=== PATIENT | female | born 1985 | race American Indian/Alaskan Native ===

== ENCOUNTER 2018-07-21 16:54 | Emergency (ER) | payer OTHER ==
[2018-07-21] MEDS ORDERED: NACL 0.9% 500 ML IR ONE (17:00)
[2018-07-21] MEDS ORDERED: XYLOCAINE 1%/ EPI 1:100,000 INFILTRATI ONE (17:01)
[2018-07-21] MEDS ORDERED: NACL 0.9% 1000 ML 1,000 ML IV ONE (17:36)
[2018-07-21] MEDS ORDERED: BOOSTRIX IM ONE ×2 (17:36→19:58)
[2018-07-21] MEDS ORDERED: ZOFRAN IV ONE (17:36)
[2018-07-21] MEDS ORDERED: KETAMINE HCL IV ONE ×2 (17:36)
[2018-07-21 17:46] LABS: Hematocrit 37.6 % (30.3-42.9); Hemoglobin 12.8 gm/dl (10.1-14.3); Mean Corpuscular HGB Conc 34 % (30-34); Mean Corpuscular Volume 87 fl (79-97); Platelet Count 197 K/mm3 (140-440); Red Blood Count 4.32 M/mm3 (3.65-5.03); Red Cell Distribution Width 13.8 % (13.2-15.2)
[2018-07-21 17:53] LABS: BUN/Creatinine Ratio 10; Blood Urea Nitrogen 6 mg/dL (7-17); Calcium 9.7 mg/dL (8.4-10.2); Hemolysis Index 27
[2018-07-21] MEDS ORDERED: ceFAZolin 2 GM in NACL 0.9% 100 ML IV ONE (18:00)
[2018-07-21 19:40] LABS: Bacteria,Urine 1+ /HPF (Negative); Bilirubin,Urine NEG (Negative); Blood,Urine SM (Negative); Color,Urine Amber (Yellow); Hyaline Casts,Urine 16 /LPF; Mucus,Urine 2+ /HPF
[2018-07-21 19:44] LABS: Amphetamine Screen,Urine PRESUMPTIVE NEGATIVE; Benzodiazepines Screen,Urine PRESUMPTIVE NEGATIVE; Cannabinoid Screen,Urine PRESUMPTIVE NEGATIVE; Cocaine Screen,Urine PRESUMPTIVE NEGATIVE; Methadone Screen,Urine PRESUMPTIVE NEGATIVE; Opiate Screen,Urine PRESUMPTIVE NEGATIVE
[2018-07-21] MEDS: KCL 10MEQ/100ML 10 MEQ/100 ML BAG IV SCH ×2 (19:45→22:27)
--- NOTE | 2018-07-21 19:56 | Emergency Department Report ---
ED General Adult HPI - General Chief complaint: Psych Stated complaint: MH Time Seen by Provider: 07/21/18 17:34 Source: EMS (verbal report received from EMS.ems notes not available at time of chart dictation), RN notes reviewed Mode of arrival: Stretcher Limitations: Altered Mental Status, Other (patient altered, agitated, psychotic) - History of Present Illness Initial comments: This is a 33-year-old female, who presents to the emergency room with emergency medical services, she is apparently and is currently on a 1013, and actively psychotic. She is brought to the hospital today by emergency medical services for self-inflicted forehead wound. As per verbal report from EMS, patient currently at an inpatient psychiatric facility and began to hit her head onto an object. We do not know why she is doing this. EMS verbally reported that it took 6 people to physically restrain the patient at the psychiatric facility, and in the ambulance, patient given Benadryl and Ativan, with no improvement in symptoms. In the emergency room, patient is agitated, belligerent, combative, and does not respond to show of force, or verbal de-escalation techniques. She is found to have a large anterior frontal scalp laceration, and is moving 4 extremities violently. The patient needed emergent chemical de-escalation, for repair of laceration, and for acquisition of emergent diagnostics to exclude life- threatening traumatic injury. Therefore, the patient is administratively consented by myself for chemical de- escalation with intramuscular ketamine. The patient receives 300 mg of intramuscular ketamine. The patient's laceration was repaired after copious irrigation with sterile saline and Betadine. Patient had 10 interrupted 40 monofilament sutures placed, after copious irrigation. There was minimal to moderate wound debridement prior to suture placement, no obvious foreign bodies were noted. Patient during her procedure required additional sedation, and therefore received additional 200 mg of ketamine intravenously. At this point in time she was on a silk winding machine operator, pulse oximetry, with capnography, and respiratory therapy, Iman was present, to monitor patient's respiratory status during her sedation. Afterwards, the patient required emergent CT imaging of the head and cervical spine, which I have administratively consented the patient for, to exclude potentially dangerous life-threatening spinal injury and intracranial injury. A noncontrast CT scan of the brain was interpreted as negative. Noncontrast CT scan of the cervical spine was interpreted as negative. Screening laboratory studies so far unremarkable, and patient did not manifest rhabdomyolysis. A bedside ultrasound confirms intrauterine . Patient given a tetanus vaccination, IV fluids, and 2 g of Ancef. Patient will be discharged with vitamins, Keflex, and may return to her psychiatric facility. The patient initially was psychotic, not able to describe rationale, exacerbating or relieving factors, radiation or nature of her symptoms. She is currently resting comfortably in her stretcher, in no acute distress. -: Sudden Location: head Radiation: other Quality: other Consistency: other Improves with: other Worsens with: other Associated Symptoms: other - Related Data Previous Rx's Medication Instructions Recorded Last Taken Type Bacitracin Zinc Oint [Antibiotic 1 applicatio TP BID 7 Days #1 tube 07/21/18 Unknown Rx Oint] Doxylamine Succinate/Vit B6 1 each PO QHS PRN #30 tablet. 07/21/18 Unknown Rx [Rick King 10-10 mg Tablet] Vit-Fe Fumar-FA [ 1 tab PO QDAY #30 tablet 07/21/18 Unknown Rx Vitamin] cephALEXin [Keflex] 500 mg PO Q12HR #10 cap 07/21/18 Unknown Rx Allergies Allergy/AdvReac Type Severity Reaction Status Date / Time No Known Allergies Allergy Unverified 07/21/18 17:22 ED Review of Systems ROS: Stated complaint: MH Other details as noted in HPI Comment: Unobtainable due to pts medical conditions (patient is actively psychotic.) ED Past Medical Hx - Medications Home Medications: Home Medications Medication Instructions Recorded Confirmed Last Taken Type Bacitracin Zinc Oint [Antibiotic 1 applicatio TP BID 7 Days #1 tube 07/21/18 Unknown Rx Oint] Doxylamine Succinate/Vit B6 1 each PO QHS PRN #30 tablet. 07/21/18 Unknown Rx [Rick King 10-10 mg Tablet] Vit-Fe Fumar-FA [ 1 tab PO QDAY #30 tablet 07/21/18 Unknown Rx Vitamin] cephALEXin [Keflex] 500 mg PO Q12HR #10 cap 07/21/18 Unknown Rx ED Physical Exam - General Limitations: Other (patient psychotic, and is thrashing around her stretcher.) General appearance: anxious, in distress - Head Head exam: Present: normocephalic, other (there is a 5 cm Y-shaped laceration on the anterior mid forehead. No foreign bodies noted.) - Eye Eye exam: Present: normal appearance, PERRL, EOMI - ENT ENT exam: Present: normal exam, normal orophraynx, mucous membranes moist, normal external ear exam - Neck Neck exam: Present: normal inspection, full ROM. Absent: tenderness, meningismus - Respiratory Respiratory exam: Present: normal lung sounds bilaterally. Absent: respiratory distress - Cardiovascular Cardiovascular Exam: Present: normal rhythm, tachycardia, normal heart sounds. Absent: systolic murmur, diastolic murmur, rubs, gallop - GI/Abdominal GI/Abdominal exam: Present: soft, other (self-inflicted scratch birch noted to the lower abdominal region). Absent: distended, tenderness, guarding, rebound, rigid, pulsatile mass - Rectal Rectal exam: Present: normal inspection (chaperoned by nurse abdoul amaya) - External exam: Present: normal external exam (chaperoned by nurse Abdoul amaya) - Extremities Exam Extremities exam: Present: full ROM, other (2+ pulses noted in the bilateral upper, lower extremities. Compartments soft. No long bony tenderness. The pelvis is stable.). Absent: normal inspection (self-inflicted scratch, bite wounds noted to the bilateral lower extremities), pedal edema, joint swelling, calf tenderness - Back Exam Back exam: Present: normal inspection, full ROM. Absent: tenderness, CVA tenderness (R), paraspinal tenderness, vertebral tenderness - Neurological Exam Neurological exam: Present: other (patient moving 4 extremities spontaneously. No facial droop. Speaking nonsensically. Detailed neurologic examination not possible secondary to underlying psychosis) - Psychiatric Psychiatric exam: Present: agitated, other (agitated) - Skin Skin exam: Present: warm (anterior laceration noted), ecchymosis (anterior scalp forehead ecchymosis) ED Course Vital Signs 07/21/18 07/21/18 07/21/18 17:08 17:16 17:23 Pulse Rate Respiratory 26 H Rate Blood Pressure O2 Sat by Pulse 95 100 98 Oximetry 07/21/18 07/21/18 07/21/18 17:30 17:45 18:08 Pulse Rate 101 H 78 77 Respiratory 34 H 28 H 20 Rate Blood Pressure 113/71 118/74 118/74 O2 Sat by Pulse 100 99 98 Oximetry 07/21/18 07/21/18 18:15 19:20 Pulse Rate 67 82 Respiratory 15 13 Rate Blood Pressure 95/59 95/59 O2 Sat by Pulse 100 100 Oximetry - Reevaluation(s) Reevaluation #1: 07/21/18 20:05 Differential diagnosis, including not limited to: Intracranial injury, cervical spine injury, scalp laceration, psychosis, , rhabdomyolysis Assessment and plan: 33-year-old female with acute psychosis and self-inflicted forehead laceration, required emergent chemical de-escalation for laceration repair, protection of patients and staff members, and acquisition of emergent diagnostics. Patient found to have intrauterine . Screening laboratory studies so far unremarkable. Vital signs remain stable. Patient is suitable for a trial of oral antibiotic, and does not appear to have an emergent condition at this time that would preclude return to her psychiatric facility. Reevaluation #2: 07/21/18 20:07 Anion gap is reviewed and appreciated, patient likely has decreased CO2 secondary to tachypnea, secondary to agitation, prior to sedation. - Procedure Description Procedures done: Suprapubic transabdominal bedside ultrasonography is performed, confirming presence of intrauterine . - Laceration /Wound Repair Anterior Medial Face Wound Location: face Wound Length (cm): 7 ( y shaped laceration, 5 cm, plus two 1 cm superior portions) Wound's Depth, Shape: into muscle, linear, contused tissue Wound Explored: clean Irrigated w/ Saline (ccs): 500 Betadine Prep?: Yes Anesthesia: Lidocaine w/ Epi Volume Anesthetic (ccs): 5 Wound Debrided: moderate Suture Size/Type: 4:0 Number of Sutures: 10 Layer Closure?: No Sterile Dressing Applied?: Yes - Moderate Sedation Indications: other (laceration repair and then acutely psychotic patient) Presedation Evaluation: Patient initially thrashing around violently on the stretcher, moving 4 extremities, speaking in full sentences, with no evidence of airway compromise. ASA Class: II Mallampati Airway Score: 2 Preparation: silk winding machine operator applied, pulse oximeter, capnometry used, supplemental O2 applied Ketamine: IV, IM Ketamine Dose: 500 (300 mg IM, 200 mg IV) Complications: none Interventions: oxygen applied Patient Tolerated Procedure: well ED Medical Decision Making - Lab Data Result diagrams: 07/21/18 17:10 07/21/18 17:10 Vital Signs 07/21/18 07/21/18 07/21/18 17:08 17:16 17:23 Pulse Rate Respiratory 26 H Rate Blood Pressure O2 Sat by Pulse 95 100 98 Oximetry 07/21/18 07/21/18 07/21/18 17:30 17:45 18:08 Pulse Rate 101 H 78 77 Respiratory 34 H 28 H 20 Rate Blood Pressure 113/71 118/74 118/74 O2 Sat by Pulse 100 99 98 Oximetry 07/21/18 07/21/18 18:15 19:20 Pulse Rate 67 82 Respiratory 15 13 Rate Blood Pressure 95/59 95/59 O2 Sat by Pulse 100 100 Oximetry Lab Results 07/21/18 07/21/18 07/21/18 Range/Units 17:10 17:10 17:10 WBC (4.5-11.0) K/mm3 RBC (3.65-5.03) M/mm3 Hgb (10.1-14.3) gm/dl Hct (30.3-42.9) % MCV (79-97) fl MCH (28-32) pg MCHC (30-34) % RDW (13.2-15.2) % Plt Count (140-440) K/mm3 Sodium (137-145) mmol/L Potassium (3.6-5.0) mmol/L Chloride (98-107) mmol/L Carbon Dioxide (22-30) mmol/L Anion Gap mmol/L BUN (7-17) mg/dL Creatinine (0.7-1.2) mg/dL Estimated GFR ml/min BUN/Creatinine Ratio % Glucose (65-100) mg/dL Calcium (8.4-10.2) mg/dL Magnesium (1.7-2.3) mg/dL Total Creatine Kinase (30-135) units/L CK-MB (CK-2) 2.0 (0.0-4.0) ng/mL HCG, Quant (0-4) mIU/mL Urine Color (Yellow) Urine Turbidity (Clear) Urine pH (5.0-7.0) Ur Specific [place] (1.003-1.030) Urine Protein (Negative) mg/dL Urine Glucose (UA) (Negative) mg/dL Urine Ketones (Negative) mg/dL Urine Blood (Negative) Urine Nitrite (Negative) Urine Bilirubin (Negative) Urine Urobilinogen (<2.0) mg/dL Ur Leukocyte Esterase (Negative) Urine WBC (Auto) (0.0-6.0) /HPF Urine RBC (Auto) (0.0-6.0) /HPF U Epithel Cells (Auto) (0-13.0) /HPF Urine Bacteria (Auto) (Negative) /HPF Hyaline Casts /LPF Urine Mucus /HPF Salicylates < 0.3 L (2.8-20.0) mg/dL Urine Opiates Screen Urine Methadone Screen Acetaminophen < 5.0 L (10.0-30.0) ug/mL Ur Barbiturates Screen Ur Phencyclidine Scrn Ur Amphetamines Screen U Benzodiazepines Scrn Urine Cocaine Screen U Marijuana (THC) Screen Drugs of Abuse Note 07/21/18 07/21/18 07/21/18 Range/Units 17:10 17:10 17:10 WBC 10.0 (4.5-11.0) K/mm3 RBC 4.32 (3.65-5.03) M/mm3 Hgb 12.8 (10.1-14.3) gm/dl Hct 37.6 (30.3-42.9) % MCV 87 (79-97) fl MCH 30 (28-32) pg MCHC 34 (30-34) % RDW 13.8 (13.2-15.2) % Plt Count 197 (140-440) K/mm3 Sodium 137 (137-145) mmol/L Potassium 3.4 L (3.6-5.0) mmol/L Chloride 98.4 (98-107) mmol/L Carbon Dioxide 13 L (22-30) mmol/L Anion Gap 29 mmol/L BUN 6 L (7-17) mg/dL Creatinine 0.6 L (0.7-1.2) mg/dL Estimated GFR > 60 ml/min BUN/Creatinine Ratio 10 % Glucose 126 H (65-100) mg/dL Calcium 9.7 (8.4-10.2) mg/dL Magnesium 2.00 (1.7-2.3) mg/dL Total Creatine Kinase (30-135) units/L CK-MB (CK-2) (0.0-4.0) ng/mL HCG, Quant [id number] H (0-4) mIU/mL Urine Color (Yellow) Urine Turbidity (Clear) Urine pH (5.0-7.0) Ur Specific [place] (1.003-1.030) Urine Protein (Negative) mg/dL Urine Glucose (UA) (Negative) mg/dL Urine Ketones (Negative) mg/dL Urine Blood (Negative) Urine Nitrite (Negative) Urine Bilirubin (Negative) Urine Urobilinogen (<2.0) mg/dL Ur Leukocyte Esterase (Negative) Urine WBC (Auto) (0.0-6.0) /HPF Urine RBC (Auto) (0.0-6.0) /HPF U Epithel Cells (Auto) (0-13.0) /HPF Urine Bacteria (Auto) (Negative) /HPF Hyaline Casts /LPF Urine Mucus /HPF Salicylates (2.8-20.0) mg/dL Urine Opiates Screen Urine Methadone Screen Acetaminophen (10.0-30.0) ug/mL Ur Barbiturates Screen Ur Phencyclidine Scrn Ur Amphetamines Screen U Benzodiazepines Scrn Urine Cocaine Screen U Marijuana (THC) Screen Drugs of Abuse Note 07/21/18 07/21/18 07/21/18 Range/Units 17:30 18:30 18:30 WBC (4.5-11.0) K/mm3 RBC (3.65-5.03) M/mm3 Hgb (10.1-14.3) gm/dl Hct (30.3-42.9) % MCV (79-97) fl MCH (28-32) pg MCHC (30-34) % RDW (13.2-15.2) % Plt Count (140-440) K/mm3 Sodium (137-145) mmol/L Potassium (3.6-5.0) mmol/L Chloride (98-107) mmol/L Carbon Dioxide (22-30) mmol/L Anion Gap mmol/L BUN (7-17) mg/dL Creatinine (0.7-1.2) mg/dL Estimated GFR ml/min BUN/Creatinine Ratio % Glucose (65-100) mg/dL Calcium (8.4-10.2) mg/dL Magnesium (1.7-2.3) mg/dL Total Creatine Kinase 120 (30-135) units/L CK-MB (CK-2) (0.0-4.0) ng/mL HCG, Quant (0-4) mIU/mL Urine Color [place] (Yellow) Urine Turbidity Slightly-cloudy (Clear) Urine pH 5.0 (5.0-7.0) Ur Specific [place] 1.019 (1.003-1.030) Urine Protein 100 mg/dl (Negative) mg/dL Urine Glucose (UA) 50 (Negative) mg/dL Urine Ketones 20 (Negative) mg/dL Urine Blood Sm (Negative) Urine Nitrite Neg (Negative) Urine Bilirubin Neg (Negative) Urine Urobilinogen 4.0 (<2.0) mg/dL Ur Leukocyte Esterase Neg (Negative) Urine WBC (Auto) 6.0 (0.0-6.0) /HPF Urine RBC (Auto) 3.0 (0.0-6.0) /HPF U Epithel Cells (Auto) 1.0 (0-13.0) /HPF Urine Bacteria (Auto) 1+ (Negative) /HPF Hyaline Casts 16 /LPF Urine Mucus 2+ /HPF Salicylates (2.8-20.0) mg/dL Urine Opiates Screen Presumptive negative Urine Methadone Screen Presumptive negative Acetaminophen (10.0-30.0) ug/mL Ur Barbiturates Screen Presumptive negative Ur Phencyclidine Scrn Presumptive negative Ur Amphetamines Screen Presumptive negative U Benzodiazepines Scrn Presumptive negative Urine Cocaine Screen Presumptive negative U Marijuana (THC) Screen Presumptive negative Drugs of Abuse Note Disclamer Oral temperature 98.1 degrees. - EKG Data -: EKG Interpreted by Ct EKG shows normal: sinus rhythm Rate: normal - EKG Data When compared to previous EKG there are: previous EKG unavailable 07/21/18 20:10 Sinus, 76 bpm, normal axis, QTC within normal limits, Q waves noted in 1, aVL, abnormal EKG, not consistent with ST elevation myocardial infarction. - Radiology Data Radiology results: report reviewed, image reviewed Noncontrast CT scan of the brain is negative for acute disease. Noncontrast CT scan of the cervical spine is negative for acute disease. Critical care attestation.: If time is entered above; I have spent that time in minutes in the direct care of this critically ill patient, excluding procedure time. ED Disposition Clinical Impression: Facial laceration, , Psychosis Disposition: DC/TX-65 PSY HOSP/PSY UNIT Is pt being admited?: No Does the pt Need Aspirin: No Condition: Good Instructions: (ED), Suture Care (ED), Laceration (ED) Additional Instructions: Wash sutures with gentle soap and water every 12-24 hours. Sutures should be taken out in 5-7 days. Please have facial laceration examined by medical professional in 2-3 days. Patient should follow up as soon as possible with an [facility] physician to initiate outpatient care. Take the antibiotics as directed. Please return to the emergency room right away with new, worsened or different symptoms. Referrals: [facility] [Provider Group] - 3-5 Days [facility] [Provider Group] - 3-5 Days [facility] [Provider Group] - 3-5 Days
[2018-07-21] MEDS ORDERED: ANTIBIOTIC OINT TP STA (20:04)
[2018-07-22] MEDS ORDERED: GEODON IM ONE ×2 (00:42→01:00)
[2018-07-22] MEDS ORDERED: NACL 0.9% 1000 ML 1,000 ML IV ONE (10:20)
[2018-07-22] MEDS ORDERED: TYLENOL PO ONE (10:21)
--- NOTE | 2018-07-22 13:12 | Ultrasound Report ---
FINAL REPORT EXAM: US OB < = 14 WEEKS FETUS HISTORY: well being COMPARISON: None. TECHNIQUE: Obstetric ultrasound was performed. FINDINGS: The uterus measures 11.3 x 6.7 x 6.4 centimeters and is anteverted. There is a single live intrauterine with heart rate of 172 beats per minute. [place]-rump length is 2 centimeters, corresponding to a gestational age of 8 weeks, 4 days, with estim ated date of delivery of 02/27/2019. The right ovary measures 2.1 x 1.8 x 3.1 centimeters. There is a 1.5 centimeter mildly complex cyst w ith internal echoes in the right ovary, that may represent a corpus luteum cyst. The left ovary measures 4.4 x 2.3 x 3.2 centimeters. There is a 2 centimeter dominant cyst. IMPRESSION: Single live intrauterine with gestational age by ultrasound of 8 weeks, 4 days, with estima laney date of delivery of 02/27/2019.
--- NOTE | 2018-07-22 13:13 | Ultrasound Report ---
FINAL REPORT EXAM: US OB TRANSVAGINAL HISTORY: SIZE AND DATE FWB COMPARISON: None. TECHNIQUE: Transvaginal obstetric sonographic imaging was performed. FINDINGS: The uterus measures 11.3 x 6.7 x 6.4 centimeters and is anteverted. There is a single live intrauterine with heart rate of 172 beats per minute. [place]-rump length is 2 centimeters, corresponding to a gestational age of 8 weeks, 4 days, with estim ated date of delivery of 02/27/2019. The right ovary measures 2.1 x 1.8 x 3.1 centimeters. There is a 1.5 centimeter mildly complex cyst w ith internal echoes in the right ovary, that may represent a corpus luteum cyst. The left ovary measures 4.4 x 2.3 x 3.2 centimeters. There is a 2 centimeter dominant cyst. IMPRESSION: Single live intrauterine with gestational age by ultrasound of 8 weeks, 4 days, with estima laney date of delivery of 02/27/2019.
[2018-07-23 02:28] VITALS: BP 105/60
--- NOTE | 2018-07-26 14:05 | Cat Scan Report ---
FINAL REPORT EXAM: CT CERVICAL SPINE WO CON HISTORY: blunt head trauma ams TECHNIQUE: Standard CT cervical spine obtained at 2.5 mm axial increments. Coronal and sagittal rec onstruction was also performed. PRIORS: None. FINDINGS: The vertebral bodies are intact. There is no evidence for acute fracture. There is no evidence for paravertebral soft tissue swelling. Alignment is maintained. IMPRESSION: Negative CT of the cervical spine.
--- NOTE | 2018-07-26 14:10 | Cat Scan Report ---
FINAL REPORT EXAM: CT HEAD/BRAIN WO CON HISTORY: blunt head trauma AMS TECHNIQUE: Standard unenhanced CT of the head at 5.0 millimeter axial increments. PRIORS: None. FINDINGS: The ventricular system is normal in size and configuration. There is no evidence for parenchymal volu me loss. There is no evidence for mass lesion, mass effect, midline shift, acute intracranial hemorrhage, or a cute ischemia/ infarction. No evidence for acute skull fracture is seen. There is extensive soft tissue swelling over the forehe ad extending to the level of the nose. Air in the soft tissues is noted suggesting laceration Visualized paranasal sinuses are clear. IMPRESSION: Soft tissue swelling over the forehead extending to the level of the nose. No acute intracranial proc ess noted.
== END 2018-07-23 07:00 ==
LOC: EEVIPCON 16:54 → ED 16:54
DX: O9A.211 Injury, poisoning and certain other consequences of external causes complicating pregnancy, first trimester (principal); S01.81XA Laceration without foreign body of other part of head, initial encounter; O99.341 Other mental disorders complicating pregnancy, first trimester; F53.1 Puerperal psychosis; Z3A.08 8 weeks gestation of pregnancy; W22.8XXA Striking against or struck by other objects, initial encounter; Y93.89 Activity, other specified; Y92.89 Other specified places as the place of occurrence of the external cause; Y99.8 Other external cause status
CPT/HCPCS: 12014; 36415; 70450; 72125; 76801; 76817; 80048; 80307; 81001; 82550; 82553; 83735; 84702; 85027; 90471; 90715; 93005; 93010; 96365; 96366; 96372; 99285; G0480; J0690; J3480; J3486; J7030; 80320

== ENCOUNTER 2018-07-23 09:45 | Emergency (ER) | payer OTHER ==
--- NOTE | 2018-07-23 10:29 | Emergency Department Report ---
HPI - General Chief Complaint: Wound/Laceration Time Seen by Provider: 07/23/18 10:13 - HPI HPI: 33-year-old -Martiniquais female presents to the emergency department after she was declined for admission to [facility], a psychiatric facility, after th ey were concerned about her facial swelling status post trauma. The patient came in on 07/21 with active psychosis and having caused a deep forehead laceration, self-inflicted, by hitting her head against something. She was seen by one of my colleagues. She had a CT scan of the head and cervical spine without contrast that did not show any fractures, subluxations, brain bleed, or any acute processes. The patient required a few different doses of ketamine for her psychosis and agitation in order to get the imaging studies done and to have laceration repair. During her workup, the patient was found to be with a confirmatory ultrasound study. Eventually patient was considered medically cleared and sent to the psychiatric facility this morning, a few hours ago. However appears the patient has developed some periorbital ecchymosis and swelling, most likely a sequela from her previous trauma, but this caused her to be declined for admission to the psychiatric facility and she was returned here for further evaluation. ED Past Medical Hx - Past Medical History Hx Psychiatric Treatment: Yes - Social History Smoking Status: Unknown if ever smoked - Medications Home Medications: Home Medications Medication Instructions Recorded Confirmed Last Taken Type Bacitracin Zinc Oint [Antibiotic 1 applicatio TP BID 7 Days #1 tube 07/21/18 Unknown Rx Oint] Doxylamine Succinate/Vit B6 1 each PO QHS PRN #30 tablet. 07/21/18 Unknown Rx [Rick King 10-10 mg Tablet] Vit-Fe Fumar-FA [ 1 tab PO QDAY #30 tablet 07/21/18 Unknown Rx Vitamin] cephALEXin [Keflex] 500 mg PO Q12HR #10 cap 07/21/18 Unknown Rx ED Review of Systems ROS: Stated complaint: MH Other details as noted in HPI Comment: Unobtainable due to pts medical conditions Physical Exam - Physical Exam Vital Signs: Vital Signs 07/23/18 09:55 Temperature 98.2 F Pulse Rate 82 Respiratory 19 Rate Blood Pressure 101/66 O2 Sat by Pulse 100 Oximetry Physical Exam: GENERAL: The patient is well-developed well-nourished. HEENT: Normocephalic. Atraumatic. Patient has moist mucous membranes. EYES: Extraocular motions are intact. Pupils are equal and reactive to light bilaterally. NECK: Supple. Trachea is midline. CHEST/LUNGS: Clear to auscultation. There is no respiratory distress noted. HEART/CARDIOVASCULAR: Regular. There is no tachycardia. There is no obvious murmur. ABDOMEN: Abdomen is soft, nontender. Patient has normal bowel sounds. There is no abdominal distention. SKIN: There is moderate to severe right periorbital nonpitting edema and ecchymosis. There is mild left periorbital edema and ecchymosis. Patient has a sutured laceration to the middle of her forehead on top of a non-expanding hematoma. No current bleeding from the laceration repair. No surrounding erythema. NEURO: The patient is awake, alert. Withdraws from painful stimuli. MUSCULOSKELETAL: There is no tenderness or deformity. There is no evidence of acute injury. ED Course Vital Signs 07/23/18 09:55 Temperature 98.2 F Pulse Rate 82 Respiratory 19 Rate Blood Pressure 101/66 O2 Sat by Pulse 100 Oximetry ED Medical Decision Making - Lab Data Result diagrams: 07/23/18 10:44 07/23/18 10:44 - Medical Decision Making This patient was previously here for self-inflicted wounds and psychosis. Multiple psychiatric facilities denied admission secondary to her self-inflicted trauma. She was accepted by [facility] this morning when they saw her and they increased facial swelling and bruising, they refused to take her for admission and sent her back. I was able to get a hold of the previous CT scans of the head and cervical spine that did not show any bleed, shift, mass, ischemia, fracture, subluxation or any acute process. I repeated the CBC and BMP which were unremarkable. The patient has been at this hospital other than her short travel to and from the psychiatric facility and therefore I do not feel that we needed a repeat blood alcohol level and urine drug screen. On examination, the patient does have bilateral periorbital edema and ecchymosis, right greater than left. This is most likely secondary to her original traumatic event and just has been worse secondary to the time that has passed and the edema and ecchymosis traveling down by gravity. The patient has been made a 1013 again. She will need to be evaluated by the psychiatric team. She will get some ice packs to try and help with the swelling. For now the patient will remain in the emergency department until she is either cleared by the psychiatric team before the swelling goes down and the patient will be accepted by a psychiatric facility. Critical Care Time: No Critical care attestation.: If time is entered above; I have spent that time in minutes in the direct care of this critically ill patient, excluding procedure time. ED Disposition Clinical Impression: Psychosis Qualifiers: Weeks of gestation: less than 8 weeks Qualified Code(s): Z3A.01 - Less than 8 weeks gestation of Disposition: DC/TX-65 PSY HOSP/PSY UNIT Is pt being admited?: No Condition: Stable Referrals: [facility] [Other] - 3-5 Days Time of Disposition: 17:02
[2018-07-23] MEDS: KEFLEX PO SCH ×2 (10:50→22:24)
[2018-07-23] MEDS: PRENATAL VITAMIN PO SCH (10:51)
[2018-07-23 11:11] LABS: Basophils % (Auto) 0.5 % (0.0-1.8); Eosinophils % (Auto) 0.8 % (0.0-4.3); Hematocrit 32.1 % (30.3-42.9); Hemoglobin 10.8 gm/dl (10.1-14.3); Lymphocytes # (Auto) 1.2 K/mm3 (1.2-5.4); Lymphocytes % (Auto) 26.3 % (13.4-35.0); Mean Corpuscular HGB Conc 34 % (30-34); Mean Corpuscular Volume 88 fl (79-97); Monocytes # (Auto) 0.4 K/mm3 (0.0-0.8); Monocytes % (Auto) 8.6 % (0.0-7.3); Platelet Count 147 K/mm3 (140-440); Red Blood Count 3.67 M/mm3 (3.65-5.03); Red Cell Distribution Width 13.8 % (13.2-15.2)
[2018-07-23 11:19] LABS: BUN/Creatinine Ratio 13; Blood Urea Nitrogen 5 mg/dL (7-17); Calcium 8.8 mg/dL (8.4-10.2); Hemolysis Index 3
--- NOTE | 2018-07-23 20:31 | Event Note ---
Date: 07/23/18 The patient is seen and examined by me. The patient has bilateral periocular and infraorbital swelling and ecchymosis, consistent with the expected mechanism of injury and natural history of her recent minor blunt traumatic head injury. The visual acuity is intact to finger counting, color perception, breathing at a close distance, the patient is able to blink in response to command, and the remainder of her examination is unremarkable. These physical exam findings are expected based off of her recent injury, and do not represent a medical or traumatic contraindication to psychiatric evaluation, consultation, and placement. The patient is medically suitable for psychiatric placement at this time. She does not require inpatient observation, inpatient admission, or transfer to a trauma center or higher level of care. The swelling will go down on its own.
[2018-07-23] MEDS: ANTIBIOTIC OINT TP SCH (22:24)
[2018-07-24] MEDS: ANTIBIOTIC OINT TP SCH ×2 (10:02→22:17)
[2018-07-24] MEDS: KEFLEX PO SCH ×2 (10:03→22:17)
[2018-07-24] MEDS: PRENATAL VITAMIN PO SCH (11:30)
--- NOTE | 2018-07-24 18:00 | Consultation ---
History of Present Illness - Reason for Consult Consult date: 07/24/18 Reason for consult: psychiatric evaluation - History of Present Psychiatric Illness She says "I'm ok." This is a 33-year-old female, who initially presented to the emergency room with emergency medical services from an inpatient facility. She hit her head repeatedly and sustained injuries requiring sedation, suturing, and CT. She was medically cleared and when transferred to [facility], she was not admitted. She was then sent back to the ER, where she was medically cleared again. She has facial swelling/bruising as expected from the nature of the injury.She is 8 weeks and is currently on a 1013, and actively psychotic. She was observed rocking with her head covered. She does not want to discuss anything further. Medications and Allergies Allergies Allergy/AdvReac Type Severity Reaction Status Date / Time No Known Allergies Allergy Unverified 07/21/18 17:22 Home Medications Medication Instructions Recorded Confirmed Last Taken Type Bacitracin Zinc Oint [Antibiotic 1 applicatio TP BID 7 Days #1 tube 07/21/18 07/24/18 Unknown Rx Oint] Doxylamine Succinate/Vit B6 1 each PO QHS PRN #30 tablet. 07/21/18 07/24/18 Unknown Rx [Rick King 10-10 mg Tablet] Vit-Fe Fumar-FA [ 1 tab PO QDAY #30 tablet 07/21/18 07/24/18 Unknown Rx Vitamin] cephALEXin [Keflex] 500 mg PO Q12HR #10 cap 07/21/18 07/24/18 Unknown Rx Active Meds: Active Medications Bacitracin (Antibiotic Oint) 1 applic TP BID [facility] Last Admin: 07/24/18 10:02 Dose: 1 applic Documented by: Cephalexin (Keflex) 500 mg PO Q12HR [facility] Last Admin: 07/24/18 10:03 Dose: 500 mg Documented by: Multivitamins/Iron/Calcium ( Vitamin) 1 each PO QDAY [facility] Last Admin: 07/24/18 11:30 Dose: 1 each Documented by: Past psychiatric history - Past Medical History Past Medical History: other (8 weeks ) - Social History Social history: other (unknown history. patient unable to provide) Mental Status Exam - Vital signs Last Vital Signs Temp 97.7 F 07/24/18 08:00 Pulse 84 07/24/18 08:00 Resp 18 07/24/18 08:00 BP 95/61 07/24/18 08:00 Pulse Ox 98 07/24/18 08:00 - Exam Narrative exam: She was observed rocking with her head covered. She spoke minimally in a soft voice. She would not discuss anything further. Results Result Diagrams: 07/23/18 10:44 07/23/18 10:44 All other labs normal. Assessment and Plan Assessment and plan: Impression: suicidal gesture repeatedly hit head on the floor causing concussion and laceration resulting in need for suturing. psychosis unspecified The risk of untreated psychosis is greater than the potential adverse effects of an antipsychotic. She has been medically cleared Recommendation: risperdal 1mg hs for psychosis dispo: transfer to inpatient psychiatric facility staffed with Dr. Osuna
[2018-07-24] MEDS ORDERED: RisperDAL PO SCH (22:00)
[2018-07-25] MEDS: PRENATAL VITAMIN PO SCH (10:30)
[2018-07-25] MEDS: ANTIBIOTIC OINT TP SCH ×2 (10:30→22:24)
[2018-07-25] MEDS: KEFLEX PO SCH ×2 (10:30→22:24)
--- NOTE | 2018-07-25 13:02 | Progress Note ---
Subjective - Reason for Consult Consult date: 07/25/18 Reason for consult: Psychiatric Follow-up Evaluation - Chief Complaint Chief complaint: " I'm doing much wonderful" Patient is a 33-year-old female, who initially presented to the emergency room with emergency medical services from an inpatient facility. She hit her head repeatedly and sustained injuries requiring sedation, suturing, and CT. Patient continues to have swelling to the head. She states, " I'm spiritually high. " She verbalizes " my conscious is telling me that there is one God. " Patient appears hyper-holiness. During the assessment patient can be seen/heard responding to internal stimuli. Patient gives conflicting answer to questions. She reports appropriate sleep and appetite. Mental Status Exam - Vital signs Last Vital Signs Temp 98.1 F 07/25/18 09:14 Pulse 100 H 07/25/18 09:14 Resp 16 07/25/18 09:14 BP 96/51 07/25/18 09:14 Pulse Ox 100 07/25/18 09:14 - Exam Narrative exam: Mental Status Exam Appearance: calm Behavior: regular eye contact Speech: regular rate and tone Mood: " much wonderful." " up and down" Affect: congruent to mood Thought Process: circumstantial, disorganized Thought Content: reports +/- SI's ; + AH's-responding to internal stimuli Cognition: A/O x3 Insight: variable Judgment:variable Assessment and Plan Impression: Psychosis Unspecified. Today the patient is a calm but guarded during the assessment. Throughout the assessment patient is responding to internal stimuli. DDx: r/o schizophrenia r/o schizoaffective disorder, bipolar type Recommendation/Plan: 1. Continue 1013. 2. Increase Risperdal 2mg hs for psychosis/mood. Attempted to discuss possible metabolic side effects. Disposition: Will transfer to inpatient psychiatric facility Staffed with Dr. Osuna.
[2018-07-25] MEDS: RisperDAL PO SCH (22:25)
[2018-07-26] MEDS: KEFLEX PO SCH ×2 (11:22→23:10)
[2018-07-26] MEDS: PRENATAL VITAMIN PO SCH (11:22)
[2018-07-26] MEDS: ANTIBIOTIC OINT TP SCH ×2 (11:22→23:10)
--- NOTE | 2018-07-26 11:25 | Progress Note ---
Subjective - Reason for Consult Consult date: 07/26/18 Reason for consult: Psychiatry Follow-up - Chief Complaint Chief complaint: "I'm okay" 33-year-old female, who initially presented to the emergency room with emergency medical services from an inpatient facility. Today the patient is calm during the assessment. Throughout the interview, the patient appears to be responding to some type of stimuli. Most of her answers to questions were not logical. She wouldn't confirm or deny AH's. No indication of side effects of her medications. Mental Status Exam - Vital signs Last Vital Signs Temp 97.9 F 07/26/18 00:00 Pulse 94 H 07/26/18 00:00 Resp 18 07/26/18 00:00 BP 106/64 07/26/18 00:00 Pulse Ox 100 07/26/18 00:00 - Exam Narrative exam: MSE: Appearance: calm Behavior: regular eye contact Speech: regular rate and low tone Mood: "okay" guarded Affect: flat Thought Process: disorganized Thought Content: denies SI/HI's and VH's, responding stimuli Motor Activity: sitting up in bed Cognition: A/O x 3 Insight: poor Judgment: variable Assessment and Plan Impression: Psychosis Unspecified. Today the patient is a calm during the assessment. DDx: R/O Schizophrenia R/O Schizoaffective DO Recommendation/Plan: Continue 1013 and Risperdal 2 mg PO HS for psychosis/mood. Attempted to discuss possible metabolic side effects of Risperdal with the patient. Dispo: The patient was referred to inpatient psy services. Staffed with Dr Hugh Barkley.
[2018-07-26] MEDS: RisperDAL PO SCH (23:10)
[2018-07-27] MEDS: ANTIBIOTIC OINT TP SCH (10:45)
[2018-07-27] MEDS: KEFLEX PO SCH (10:50)
[2018-07-27] MEDS: PRENATAL VITAMIN PO SCH (11:52)
--- NOTE | 2018-07-27 13:16 | Progress Note ---
Subjective - Reason for Consult Consult date: 07/27/18 Reason for consult: Psychiatry Follow-up - Chief Complaint Chief complaint: "Not at this time" 33-year-old female, who initially presented to the emergency room with emergency medical services from an inpatient facility. Today the patient is calm, but refused to talk during the assessment. Per collateral information from her sister Gauri Zapien, she stated that the patient reside with her and can return home once the patient complete her treatment. No gestures of SI/HI's by the patient. Mental Status Exam - Vital signs Last Vital Signs Temp 98 F 07/27/18 08:49 Pulse 89 07/27/18 08:49 Resp 18 07/27/18 08:49 BP 103/65 07/27/18 08:49 Pulse Ox 100 07/27/18 08:49 - Exam Narrative exam: unable to complete the MSE because the patient refused to cooperate. Assessment and Plan Impression: Psychosis Unspecified. Today the patient is calm, but refused to talk during the assessment. DDx: R/O Schizophrenia R/O Schizoaffective DO Recommendation/Plan: Continue 1013 and start Haldol 10 mg PO HS for psychosis. Benefit outweighs risk at this time, the patient is psychotic. She is known to cause injuries to herself. We prefer to order Latuda, but this medication isn't on formulary. Dispo: The patient was accepted at [facility] for inpatient psy services. Staffed with Dr Isa Barkley.
[2018-07-27 13:57] VITALS: BP 111/74
[2018-07-27] MEDS ORDERED: HALDOL PO SCH (22:00)
== END 2018-07-27 16:59 ==
LOC: EEVIPCON 09:45 → ED 09:45
DX: O99.341 Other mental disorders complicating pregnancy, first trimester (principal); F23 Brief psychotic disorder; S01.112A Laceration without foreign body of left eyelid and periocular area, initial encounter; Z3A.01 Less than 8 weeks gestation of pregnancy; Y29.XXXA Contact with blunt object, undetermined intent, initial encounter; Y93.89 Activity, other specified; Y92.89 Other specified places as the place of occurrence of the external cause; Y99.8 Other external cause status
CPT/HCPCS: 36415; 80048; 85025